=== PATIENT | male | born 1950 | race Caucasian/White ===

== ENCOUNTER → 2019-06-11 | Outpatient (CLI) | payer OTHER | END | disposition home or self-care (01) | LOC: LAB 12:54 | PROVIDERS: ATTEND Family Medicine | DX: M79.18 Myalgia, other site (principal) | CPT/HCPCS: 36415; 85651 ==

== ENCOUNTER → 2019-07-09 | Outpatient (CLI) | payer OTHER | END | disposition home or self-care (01) | LOC: LAB 10:45 | PROVIDERS: ATTEND Family Medicine | DX: M79.18 Myalgia, other site (principal) | CPT/HCPCS: 36415; 85651 ==

== ENCOUNTER → 2019-08-22 | Outpatient (CLI) | payer OTHER | END | disposition home or self-care (01) | LOC: LAB 13:12 | PROVIDERS: ATTEND Family Medicine | DX: M79.18 Myalgia, other site (principal) | CPT/HCPCS: 36415; 85651 ==

== ENCOUNTER → 2020-10-01 | Outpatient (CLI) | payer OTHER | END | disposition home or self-care (01) | LOC: RAH 07:40 | PROVIDERS: ATTEND Family Medicine | DX: M51.27 Other intervertebral disc displacement, lumbosacral region (principal); M47.812 Spondylosis without myelopathy or radiculopathy, cervical region; M43.16 Spondylolisthesis, lumbar region; M48.061 Spinal stenosis, lumbar region without neurogenic claudication; M48.02 Spinal stenosis, cervical region | CPT/HCPCS: 72141; 72148 ==

== ENCOUNTER → 2020-12-05 | Outpatient (CLI) | payer OTHER ==
[2020-12-05 13:30] LABS: BASOPHILS % (AUTO) 0.3 % (0.0-5.0); EOSINOPHILS % (AUTO) 0.9 % (0.0-8.0); HEMATOCRIT 42.1 % (42-54); LYMPHOCYTES % (AUTO) 22.5 % (21.0-51.0); MEAN CORPUSCULAR HEMOGLOBIN 32.3 pg (27.0-33.0); MEAN CORPUSCULAR HGB CONC 33.7 g/dL (32.0-36.0); MEAN CORPUSCULAR VOLUME 95.9 fL (79-99); PLATELET COUNT (AUTO) 197 K/uL (130-400); RED BLOOD CELL COUNT(AUTO) 4.39 MIL/uL (4.50-6.20); RED CELL DISTRIBUTION WIDTH 13.7 % (11.0-15.5); WHITE BLOOD COUNT (AUTO) 7.9 K/uL (4.8-10.8)
[2020-12-05 13:37] LABS: CREATININE 1.1 mg/dL (0.5-1.5); POTASSIUM 4.2 mmol/L (3.5-5.1)
[2020-12-05 13:40] LABS: INR 1.01 (0.85-1.15)
== END | disposition home or self-care (01) ==
LOC: LAB 12:25
PROVIDERS: ATTEND Internal Medicine Interventional Cardiology
DX: Z01.810 Encounter for preprocedural cardiovascular examination (principal); I10 Essential (primary) hypertension; R06.02 Shortness of breath; Z20.822 Contact with and (suspected) exposure to COVID-19
CPT/HCPCS: 36415; 80048; 85025; 85610; C9803; U0003

== ENCOUNTER → 2021-03-12 | Outpatient (CLI) | payer OTHER | END | disposition home or self-care (01) | LOC: RAH 08:22 | PROVIDERS: ATTEND Neurological Surgery | DX: M47.22 Other spondylosis with radiculopathy, cervical region (principal) | CPT/HCPCS: 72040 ==